=== PATIENT | male | born 1960 | race Caucasian/White ===

== ENCOUNTER 2018-09-30 05:44 | Day surgery (SDC) | payer OTHER ==
[2018-09-30] MEDS ORDERED: fentaNYL 100 MCG/2 ML SDV IV ONE ×3 (05:45→07:03)
[2018-09-30] MEDS ORDERED: Midazolam 1 MG/ML 2 ML SDV IV ONE ×6 (05:45→07:15)
[2018-09-30] MEDS ORDERED: Midazolam 1 MG/ML 2 ML SDV ONE (05:57)
[2018-09-30] MEDS ORDERED: fentaNYL 100 MCG/2 ML SDV ONE (05:58)
[2018-09-30] MEDS ORDERED: Dextrose 5%-0.45% NaCl 1,000 ML IV SCH ×2 (06:38→08:00)
[2018-09-30] MEDS ORDERED: Sodium Chloride 0.9% 10 ML Syringe FLUSH PRN (07:00)
[2018-09-30 12:31] VITALS: BP 109/87; PULSE 56
--- NOTE | 2018-09-30 13:03 | OR ---
DATE: 09/30/2018 PROCEDURE PERFORMED: Total colonoscopy, narrowband imaging, and cold snare polypectomy. INSTRUMENT USED: CF-RS219K Olympus video colonoscope. PREMEDICATIONS: Fentanyl 100 mcg intravenous, Versed 3 mg intravenous. Nasal O2 cannula. The procedure was done under pulse oximetry, BP recording, and classroom monitor. INDICATION: The patient with previous colonic villotubular adenomata including sessile polyp removal. Surveillance colonoscopy examination is done for detection of any polypoid lesions and removal, endoscopic hemostasis therapy if needed. DESCRIPTION OF PROCEDURE: Initial rectal exam was unremarkable. Rigid anoscopy was normal. The colonoscope was passed with ease up to the ileocecal area. Photographs were taken of the normal-appearing cecum, identified by landmarks of appendiceal orifice and double-bulged ileocecal folds. No bleeding was noted from any of the visualized areas at the commencement of the examination. The bowel preparation was found to be adequate, [place] scale 2 in the ascending colon area. Scale 3 rest of the colon. No stricture. No vascular ectasia. No large isolated ulcerations seen. No evidence of diffuse inflammatory bowel disease in the form of friability, contact bleeding, or ulcerations. In the mid ascending colon, a 5 mm sized benign-appearing polyp was noted, photograph was taken, NBI views were obtained, cold snare polypectomy was done, the tissue was retrieved and sent for histopathology. Probing the proximal sides of folds and flexures using adequate distention and clearing up the stool material, withdrawal of the scope was made. No bleeding was noted from any of the visualized areas at the completion of examination. IMPRESSION: Ascending colon polyp. The patient tolerated the procedure well. [facility] /[id number]
--- NOTE | 2018-09-30 13:23 | LETTER ---
09/30/2018 Jamie Solomon MD [address] [id number] RE: CARLOS JAMES : [address] Solomon: Mr. Carlos aJmes had colonoscopic examination done this morning and he tolerated the procedure well. I herewith send a copy of the endoscopy note and photographs for your review. Thank you. Sincerely, [facility] /[id number]
== END 2018-09-30 09:55 | disposition home or self-care (01) ==
LOC: DL.ENDO 05:44
PROVIDERS: ATTEND Internal Medicine Gastroenterology
DX: Z12.11 Encounter for screening for malignant neoplasm of colon (principal); D12.2 Benign neoplasm of ascending colon; I10 Essential (primary) hypertension; E11.9 Type 2 diabetes mellitus without complications; E66.09 Other obesity due to excess calories; Z68.34 Body mass index [BMI] 34.0-34.9, adult; Z86.010 Personal history of colon polyps; Z79.4 Long term (current) use of insulin
CPT/HCPCS: 45385; J2250; J3010; J7042

== ENCOUNTER 2024-01-04 17:47 | Emergency (ER) | payer OTHER ==
[2024-01-04] MEDS: Ondansetron 4 MG Tab.DIS PO ONE (18:45)
[2024-01-04 19:06] LABS: BASOPHILS PERCENT AUTO 0.2 % (0.0-1.0); EOSINOPHILS PERCENT AUTO 0.1 % (1.0-3.0); HEMATOCRIT 50.6 % (40.0-54.0); LYMPHOCYTES PERCENT AUTO 14.5 % (20.5-50.1); MEAN CORPUSCULAR HEMOGLOBIN 33.9 pg (27.0-34.0); MEAN CORPUSCULAR HGB CONC 33.6 g/dL (33.0-35.0); MEAN CORPUSCULAR VOLUME 100.8 fL (80-100); NEUTROPHILS PERCENT AUTO 72.2 % (42.2-75.2); PLATELET COUNT,PLT 283 10^3/uL (150-450); RED BLOOD CELL COUNT 5.02 10^6/uL (4.6-6.2); WHITE BLOOD CELL COUNT,WBC 8.6 10^3/uL (5.0-10.0)
[2024-01-04 19:28] LABS: LACTIC ACID 1.8 mmol/L (0.4-2.0)
[2024-01-04 19:32] LABS: B-TYPE NATRIURETIC PEPTIDE,BNP 23 pg/ml (0-100)
[2024-01-04 19:38] LABS: A/G RATIO 0.7; ALANINE AMINOTRANSFERASE,ALT 14 U/L (16-63); ALBUMIN 3.5 g/dL (3.4-5.0); ALKALINE PHOSPHATASE 106 U/L (46-116); ANION GAP 20.6 mEq/L (7-13); ASPARTATE AMNIOTRANSFERASE,AST 17 U/L (15-37); BILIRUBIN TOTAL 0.9 mg/dL (0.2-1.0); BLOOD UREA NITROGEN,BUN 29 mg/dL (7-18); BUN/CREATININE RATIO 28.2 (No establ ref range); CARBON DIOXIDE,CO2 22 mmol/L (21-32); CHLORIDE,CL 94 mmol/L (98-107); CREATININE 1.03 mg/dL (0.70-1.30); EST CRCL DRUG DOSING (CG) 82.66 mL/min; ESTIMATED GFR 83 mL/min (>=60); GLUCOSE RANDOM 233 mg/dL (70-99); POTASSIUM,K 4.6 mmol/L (3.5-5.1); PROTEIN TOTAL,TP 8.6 g/dL (6.4-8.2); SODIUM,NA 132 mmol/L (136-145)
[2024-01-04] MEDS: Iopamidol 755 Mg/ML 100 ML Bottle IV ONE (21:06)
[2024-01-04] MEDS: Sodium Chloride 0.9% 1,000 ML IV ONE (21:33)
[2024-01-04] MEDS ORDERED: Dextrose 5% in Water 1,000 ML IV SCH (22:15)
[2024-01-04] MEDS: Lidocaine 2% Jelly 10 ML Urojet MUCMEM ONE (22:30)
[2024-01-04] MEDS: Benzocaine 20% Oral Spray 59.2 ML Canister MUCMEM ONE (22:30)
[2024-01-04] MEDS: ceFAZolin 2 GM Vial IVPUSH ONE (22:56)
[2024-01-04] MEDS: Benzocaine 20% Topical Spray UD MUCMEM ONE (23:10)
[2024-01-04 23:21] VITALS: BP 145/78; PULSE 60
== END 2024-01-04 23:09 ==
LOC: DL.ED 17:47
DX: K56.609 Unspecified intestinal obstruction, unspecified as to partial versus complete obstruction (principal); I10 Essential (primary) hypertension; E11.9 Type 2 diabetes mellitus without complications; Z79.82 Long term (current) use of aspirin; Z79.899 Other long term (current) drug therapy; Z79.4 Long term (current) use of insulin; Z79.84 Long term (current) use of oral hypoglycemic drugs
CPT/HCPCS: 36415; 43752; 51702; 71046; 71275; 74177; 80053; 83605; 83690; 83880; 84145; 84484; 85025; 85379; 87635; 87804; 96361; 96374; 99285; A9270; J0690; J7030; Q9967; U0002